=== PATIENT | female | born 1965 | race Caucasian/White ===

== ENCOUNTER → 2023-06-19 10:19 | Outpatient (REF) | payer MEDICARE, SELFPAY | LOC: RCS 10:19 | PROVIDERS: ATTENDING PHYSICIAN Family Medicine | DX: I49.9 Cardiac arrhythmia, unspecified (principal) | CPT/HCPCS: 93225; 93226 ==

== ENCOUNTER → 2024-05-05 14:25 | Outpatient (REF) | payer MEDICARE, SELFPAY | LOC: HWRAD 14:25 | PROVIDERS: ATTENDING PHYSICIAN Family Medicine | DX: R22.1 Localized swelling, mass and lump, neck (principal) | CPT/HCPCS: 76536 ==